=== PATIENT | male | born 1990 | race Caucasian/White ===

== ENCOUNTER 2019-02-01 21:54 | Emergency (ER) | payer SELFPAY ==
[~2019-02-01 21:54] MED LIST: Orphenadrine 100 MG Tab.ER PO SCH
[2019-02-01] MEDS ORDERED: Ibuprofen 800 MG Tab PO ONE (22:20)
[2019-02-01] MEDS ORDERED: Lisinopril 10 MG Tab PO ONE (22:20)
--- NOTE | 2019-02-01 22:28 | EDM.PDOC ---
ED HPI GENERAL MEDICAL PROBLEM - General Chief Complaint: Neck Problem Stated Complaint: NECK/SHOULDER PAIN/WEAKNESS Time Seen by Provider: 02/01/19 22:18 Source of Information: Reports: Patient History Limitations: Reports: No Limitations - History of Present Illness INITIAL COMMENTS - FREE TEXT/NARRATIVE: 28 y/o male presents to ER with cc right sided neck pain and right shoulder pain that started yesterday. He states the pain started in the right side of his neck and now is in his right upper shoulder region. He denies fever, chills , headache. He has not taken anything for pain. He reports the pain is worse with movement. He also has a history or hypertension and is hypertensive here. He does not take medications for his blood pressure. He does not have a PCP. Onset Date: 01/31/19 Onset Time: 16:00 Duration: Getting Worse Location: Reports: Neck, Upper Extremity, Right Quality: Reports: Ache Severity: Mild Improves with: Reports: None Worsens with: Reports: None Context: Reports: Lifting Associated Symptoms: Reports: No Other Symptoms Right Neck Pain Score (Numeric/FACES): 4 - Related Data Allergies Allergy/AdvReac Type Severity Reaction Status Date / Time No Known Allergies Allergy Verified 02/01/19 22:05 Home Meds: Home Meds Cyclobenzaprine [Flexeril] 10 mg PO TID PRN 10 Days #30 tab 02/01/19 [Rx] Ibuprofen 800 mg PO Q8HR PRN 10 Days #30 tablet 02/01/19 [Rx] Past Medical History - Past Health History Medical/Surgical History: Denies Medical/Surgical History - Past Surgical History HEENT Surgical History: Reports: Tonsillectomy Musculoskeletal Surgical History: Reports: Other (See Below) Other Musculoskeletal Surgeries/Procedures:: rotator cuff surgery Social & Family History - Tobacco Use Smoking Status *Q: Never Smoker - Caffeine Use Caffeine Use: Reports: Coffee, Energy Drinks, Soda, Tea - Recreational Drug Use Recreational Drug Use: No ED ROS GENERAL - Review of Systems Review Of Systems: See Below Constitutional: Denies: Fever, Chills HEENT: Reports: No Symptoms Respiratory: Denies: Shortness of Breath Cardiovascular: Denies: Chest Pain Endocrine: Denies: Fatigue GI/Abdominal: Reports: No Symptoms : Reports: No Symptoms Musculoskeletal: Reports: Neck Pain, Shoulder Pain (right shoulder) Skin: Reports: No Symptoms Neurological: Reports: No Symptoms. Denies: Dizziness, Headache Psychiatric: Reports: No Symptoms Hematologic/Lymphatic: Reports: No Symptoms Immunologic: Reports: No Symptoms ED EXAM, UPPER BACK/NECK PAIN - Physical Exam Exam: See Below Exam Limited By: No Limitations General Appearance: Alert, WD/WN, No Apparent Distress Eye Exam: Bilateral Eye: EOMI, PERRL Ears Exam: Normal External Exam, Normal Canal, Hearing Grossly Normal, Normal TMs Nose Exam: Normal Inspection, Normal Mucousa, No Blood Throat/Mouth Exam: Normal Inspection, Normal Lips, Normal Teeth, Normal Gums, Normal Oropharynx, Normal Voice, No Airway Compromise Head Exam: Atraumatic, Normocephalic Neck Exam: Non-Tender, Full Range of Motion, Normal Alignment, Normal Inspection Cardiovascular/Respiratory: Regular Rate, Rhythm, Normal Peripheral Pulses, Normal Breath Sounds, No Respiratory Distress, JVD Back Exam: Normal Inspection, Full Range of Motion Extremities: Normal Inspection, Normal Range of Motion, Non-Tender, No Pedal Edema, Normal Capillary Refill Neurologic: human resources temp II-XII nml As Tested, No Motor/Sensory Deficits, Alert, Normal Mood/Affect, Oriented x 3 Psychiatric: Normal Affect, Normal Mood Skin Exam: Normal Color, Warm/Dry Lymphatic: No Adenopathy Course - Vital Signs Last Recorded V/S: Last Vital Signs Temp 97.5 F 02/01/19 22:03 Pulse 75 02/01/19 22:03 Resp 18 02/01/19 22:03 BP 171/115 H 02/01/19 22:03 Pulse Ox 98 02/01/19 22:03 - Orders/Labs/Meds Orders: Active Orders 24 hr Category Date Time Status Ibuprofen [Motrin] Med 02/01/19 22:20 Once 800 mg PO ONETIME ONE Lisinopril [Prinivil] Med 02/01/19 22:20 Once 10 mg PO ONETIME ONE Orphenadrine [Norflex] Med 02/01/19 21:00 Active 100 mg PO BEDTIME Medication Orders Ibuprofen (Motrin) 800 mg PO ONETIME ONE Stop: 02/01/19 22:21 Orphenadrine Citrate (Norflex) 100 mg PO BEDTIME KARINA Meds: Medications Generic Name Dose Route Start Last Admin Trade Name Freq PRN Reason Stop Dose Admin Ibuprofen 800 mg 02/01/19 22:20 Motrin PO 02/01/19 22:21 ONETIME ONE Orphenadrine Citrate 100 mg 02/01/19 21:00 Norflex PO BEDTIME [facility] - Re-Assessments/Exams Free Text/Narrative Re-Assessment/Exam: 02/01/19 22:25 28 y/o male presented to ER with cc two day history of right sided neck and shoulder pain. I will discharge home with Flexeril for muscle strain. I informed him not to take this medication and drink, drive or operate machinery while taking it. I will refer the patient to Dr. Miriam Skaggs for evaluation and treatment of hypertension. Instructed him to return to the ER for any new or acute worsening symptoms. I will give the patient a few days off work. He verbalized understanding and is comfortable with plan for discharge. He is stable at time of discharge. Departure - Departure Time of Disposition: 22:28 Disposition: Home, Self-Care 01 Condition: Good Clinical Impression: Neck muscle strain Qualifiers: Encounter type: initial encounter Qualified Code(s): S16.1XXA - Strain of muscle, fascia and tendon at neck level, initial encounter Right shoulder strain Qualifiers: Encounter type: initial encounter Qualified Code(s): S46.911A - Strain of unspecified muscle, fascia and tendon at shoulder and upper arm level, right arm , initial encounter - Discharge Information *PRESCRIPTION DRUG MONITORING PROGRAM REVIEWED*: Yes *COPY OF PRESCRIPTION DRUG MONITORING REPORT IN PATIENT ESTEVAN: Not Applicable Prescriptions: Ibuprofen 800 mg PO Q8HR PRN 10 Days #30 tablet PRN Reason: shoulder pain Cyclobenzaprine [Flexeril] 10 mg PO TID PRN 10 Days #30 tab PRN Reason: neck pain Instructions: Muscle Strain, [id number], Cryotherapy, [id number] Referrals: Vish Vera MD [Physician] - Forms: ED Department Discharge, ED Return to Work/School Form - My Orders Last 24 Hours: My Active Orders 02/01/19 21:00 Orphenadrine [Norflex] 100 mg PO BEDTIME 02/01/19 22:20 Ibuprofen [Motrin] 800 mg PO ONETIME ONE Lisinopril [Prinivil] 10 mg PO ONETIME ONE - Assessment/Plan Last 24 Hours: My Active Orders 02/01/19 21:00 Orphenadrine [Norflex] 100 mg PO BEDTIME 02/01/19 22:20 Ibuprofen [Motrin] 800 mg PO ONETIME ONE Lisinopril [Prinivil] 10 mg PO ONETIME ONE
== END 2019-02-01 22:38 | disposition home or self-care (01) ==
LOC: JD.ED 21:54
DX: S16.1XXA Strain of muscle, fascia and tendon at neck level, initial encounter (principal); S46.911A Strain of unspecified muscle, fascia and tendon at shoulder and upper arm level, right arm, initial encounter; X58.XXXA Exposure to other specified factors, initial encounter
CPT/HCPCS: 99283; A9270

== ENCOUNTER 2019-11-29 10:51 | Emergency (ER) | payer BC ==
[2019-11-29] MEDS ORDERED: Sodium Chloride 0.9% 10 ML Syringe FLUSH PRN (11:16)
--- NOTE | 2019-11-29 11:16 | EDM.PDOC ---
ED HPI GENERAL MEDICAL PROBLEM - General Chief Complaint: Respiratory Problem Stated Complaint: SOB/COUGH Time Seen by Provider: 11/29/19 11:01 Source of Information: Reports: Patient, RN Notes Reviewed History Limitations: Reports: No Limitations - History of Present Illness INITIAL COMMENTS - FREE TEXT/NARRATIVE: Patient is a 29-year-old male who presents to the ED for the evaluation of increasing shortness of breath and a cough. Patient states that this cough has been chronic since July. It is normally a dry cough, but he gets some dark brown, really dark-colored mucus up at times. Patient states he has been evaluated multiple times at the walk-in clinic for this cough, he states he has been tried on steroids, nebulizers, antibiotics, and nothing seems to really help his cough. The patient states that he went to work today however, and he had some sudden onset dizziness, sweating, and vomiting that was out of character for him. He does note that he gets hot and cold flashes following the cough fits. He went to the walk-in clinic for evaluation of his symptoms today, but they sent him to the ER, as they thought it may be his heart. The patient does not have a primary care provider. He states that he does not have any prior lung issues like asthma, but he was diagnosed with pleurisy in [place] a few years back. He does not take any other sort of regular medications. He does complain of some nausea in the morning, but this does seem to get better as the day progresses. He is also experienced some increased pressure in his face, when he brings his head down past his heart level or to his knees. - Related Data Allergies Allergy/AdvReac Type Severity Reaction Status Date / Time No Known Allergies Allergy Verified 11/29/19 11:00 Home Meds: Home Meds Doxycycline [Vibramycin] 200 mg PO BID #40 tab 11/29/19 [Rx] Fluticasone Propionate [Flovent HFA 110 MCG] 1 puff INH BID #1 inh 11/29/19 [Rx] Past Medical History Respiratory History: Reports: Other (See Below) (pleurisy) - Past Surgical History HEENT Surgical History: Reports: Tonsillectomy Musculoskeletal Surgical History: Reports: Other (See Below) Other Musculoskeletal Surgeries/Procedures:: rotator cuff surgery Social & Family History - Tobacco Use Smoking Status *Q: Never Smoker - Caffeine Use Caffeine Use: Reports: Coffee, Energy Drinks, Soda, Tea - Alcohol Use Alcohol Use History: Yes Alcohol Use Frequency: Socially - Recreational Drug Use Recreational Drug Use: No ED ROS GENERAL - Review of Systems Review Of Systems: See Below Constitutional: Denies: Fever, Chills HEENT: Denies: Rhinitis, Sinus Problem, Throat Pain Respiratory: Reports: Shortness of Breath Cardiovascular: Reports: Lightheadedness. Denies: Chest Pain, Blood Pressure Problem, Palpitations GI/Abdominal: Reports: Nausea (worse in the AM, goes away as the day progresses) . Denies: Abdominal Pain, Constipation, Diarrhea, Vomiting Neurological: Denies: Headache, Syncope Immunologic: Denies: Environmental Allergy, Seasonal Allergy ED EXAM, GENERAL - Physical Exam Exam: See Below Exam Limited By: No Limitations General Appearance: Alert, WD/WN, No Apparent Distress Eye Exam: Bilateral Eye: EOMI, Normal Inspection, PERRL Ears: Normal External Exam, Normal Canal, Hearing Grossly Normal, Normal TMs Nose: Normal Inspection, Other (bilateral injected turbinates) Throat/Mouth: Normal Inspection, Normal Lips, Normal Teeth, Normal Gums, Normal Oropharynx, Normal Voice, No Airway Compromise Head: Atraumatic, Normocephalic Neck: Normal Inspection, Supple, Non-Tender, Full Range of Motion Respiratory/Chest: No Respiratory Distress, Lungs Clear, No Accessory Muscle Use , Chest Non-Tender, Decreased Breath Sounds (diffuse bilaterally) Cardiovascular: Normal Peripheral Pulses, Regular Rate, Rhythm, No Edema, No Murmur Peripheral Pulses: 3+: Radial (L), Radial (R) GI/Abdominal: Normal Bowel Sounds, Soft, Non-Tender, No Distention, No Mass Extremities: Normal Inspection, Normal Capillary Refill Neurological: Alert, Oriented, Normal Cognition, No Motor/Sensory Deficits Psychiatric: Normal Affect, Normal Mood Skin Exam: Warm, Dry, Intact, Normal Color, No Rash EKG INTERPRETATION EKG Date: 11/29/19 Time: 11:37 Rhythm: NSR Rate (Beats/Min): 85 [place]: Normal P-Wave: Present QRS: Normal ST-T: Normal QT: Normal Comparison: NA - No Prior EKG EKG Interpretation Comments: No acute ischemic changes noted reviewed by Dr. Larios and myself. Course - Vital Signs Last Recorded V/S: Last Vital Signs Temp 98.4 F 11/29/19 10:58 Pulse 79 11/29/19 10:58 Resp 16 11/29/19 10:58 BP 156/104 H 11/29/19 10:58 Pulse Ox 96 11/29/19 10:58 - Orders/Labs/Meds Orders: Active Orders 24 hr Category Date Time Status EKG Documentation Completion [RC] STAT Care 11/29/19 11:16 Ordered Peripheral IV Care [RC] . DIRECTED Care 11/29/19 11:17 Ordered CBC WITH MANUAL DIFF [HEME] Stat Lab 11/29/19 11:16 Ordered Sodium Chloride 0.9% [Saline Flush] Med 11/29/19 11:16 Ordered 10 ml FLUSH ASDIRECTED PRN Peripheral IV Insertion Adult [OM.PC] Stat Oth 11/29/19 11:16 Ordered Medication Orders Sodium Chloride (Saline Flush) 10 ml FLUSH ASDIRECTED PRN PRN Reason: Keep Vein Open Labs: Laboratory Tests 11/29/19 11/29/19 11/29/19 Range/Units 12:20 12:20 12:20 WBC 7.78 (4.23-9.07) K/mm3 RBC 5.16 (4.63-6.08) M/mm3 Hgb 15.7 (13.7-17.5) gm/dl Hct 44.0 (40.1-51.0) % MCV 85.3 (79.0-92.2) fl MCH 30.4 (25.7-32.2) pg MCHC 35.7 H (32.2-35.5) g/dl RDW Std Deviation 39.5 (35.1-43.9) fL Plt Count 241 (163-337) K/mm3 MPV 10.8 (9.4-12.3) fl Neutrophils % (Manual) 71 H (40-60) % Band Neutrophils % 0 (0-10) % Lymphocytes % (Manual) 22 (20-40) % Atypical Lymphs % 0 % Monocytes % (Manual) 7 (2-10) % Eosinophils % (Manual) 0 L (0.8-7.0) % Basophils % (Manual) 0 L (0.2-1.2) Anisocytosis 1+ slight RBC Morph Comment Normal PT 10.9 (9.7-12.0) SECONDS INR 1.00 APTT 26 (22-31) SECONDS Sodium 141 (136-145) mEq/L Potassium 4.3 (3.5-5.1) mEq/L Chloride 104 (98-107) mEq/L Carbon Dioxide 26 (21-32) mEq/L Anion Gap 15.3 H (5-15) BUN 14 (7-18) mg/dL Creatinine 1.0 (0.7-1.3) mg/dL Est Cr Clr Drug Dosing 131.44 mL/min Estimated GFR (MDRD) > 60 (>60) mL/min BUN/Creatinine Ratio 14.0 (14-18) Glucose 93 (74-106) mg/dL Calcium 9.2 (8.5-10.1) mg/dL Magnesium 1.9 (1.8-2.4) mg/dl Total Bilirubin 0.7 (0.2-1.0) mg/dL AST 35 (15-37) U/L ALT 107 H (16-63) U/L Alkaline Phosphatase 56 (46-116) U/L Troponin I < 0.017 (0.00-0.056) ng/mL Total Protein 7.5 (6.4-8.2) g/dl Albumin 4.3 (3.4-5.0) g/dl Globulin 3.2 gm/dL Albumin/Globulin Ratio 1.3 (1-2) Meds: Medications Generic Name Dose Route Start Last Admin Trade Name Freq PRN Reason Stop Dose Admin Sodium Chloride 10 ml 11/29/19 11:16 Saline Flush FLUSH ASDIRECTED PRN Keep Vein Open - Re-Assessments/Exams Free Text/Narrative Re-Assessment/Exam: 11/29/19 11:34 Patient presents to the ED for the evaluation of his chronic cough and URI symptoms. I did order some labs EKG a chest x-ray to rule things out, and were questioning the thought of an acid reflux type component to the cough, as he states his nausea is worse in the morning. If everything comes back fairly normal, will likely have him try some omeprazole [id number] to see if this does not help calm his cough. Turbinates are pretty injected as well, is likely that he has some sort of allergic type response with a postnasal drip component as well, he states that he is tried multiple things for postnasal drip and nothing seems to work, I am questioning whether he stuck with it or did it as directed. 11/29/19 13:06 Lab work-up demonstrates no abnormalities. Chest x-ray is still pending, however there does not appear to be any obvious sign of an infiltrate, there is a small area on the right lower lung that appears to be a small pleural effusion. Again I am questioning whether or not his chronic cough could be due to GERD or reflux in nature, and now with a chest x-ray demonstrating a mild effusion this could be causing enough irritation as well. Departure - Departure Time of Disposition: 13:28 Disposition: Home, Self-Care 01 Condition: Fair Clinical Impression: Cough in adult Sinusitis Qualifiers: Sinusitis location: unspecified location Chronicity: acute Recurrence: non- recurrent Qualified Code(s): J01.90 - Acute sinusitis, unspecified - Discharge Information *PRESCRIPTION DRUG MONITORING PROGRAM REVIEWED*: No *COPY OF PRESCRIPTION DRUG MONITORING REPORT IN PATIENT ESTEVAN: No Instructions: How to Perform a Sinus Rinse, [id number], Cough, Adult, Easy-to -Read Referrals: PCP,None [Primary Care Provider] - Forms: ED Department Discharge Additional Instructions: You were evaluated in the ER today regarding your chronic cough and other sick- like symptoms. Laboratory evaluation done today demonstrates no metabolic abnormalities or any sort of bacterial infection. Chest x-ray shows a very very very small pleural effusion in the right lung base, which may be causing some irritation to her lungs but should not be attributing this much to your cough. It is still likely that your cough is due to postnasal drip in nature, as your sinuses are quite congested on exam. You have been started on doxycycline 200 mg twice daily for the next 10 days, and will be started on Flovent, 2 puffs twice daily, until you have no cough for 3 days, and then you can taper off of this. Recommend you perform sinus rinses, twice daily, for a few days as well to help see if this does not clear up some of your symptoms. It is also highly likely due to your reported nausea in the morning, that your symptoms may also likely be due to acid reflux in nature, recommend you start taking omeprazole [id number], do this for the next 2 or 3 weeks to see if this does not help improve your symptoms. Try to stay away from spicy foods, alcohol, chocolate over the next few days to see if this does not help relieve some of your symptoms as well. Recommend you set up care with a primary care physician of your choice, our clinic number [phone], any family practice provider would be able to help you with this. Please return to the ER at any time however if your symptoms change or worsen. Sepsis Event Note - Evaluation Sepsis Screening Result: No Definite Risk - Focused Exam Vital Signs: Vital Signs Temp Pulse Resp BP Pulse Ox 11/29/19 10:58 98.4 F 79 16 156/104 H 96 Date Exam was Performed: 11/29/19 Time Exam was Performed: 13:26 - My Orders Last 24 Hours: My Active Orders 11/29/19 11:16 EKG Documentation Completion [RC] STAT CBC WITH MANUAL DIFF [HEME] Stat Sodium Chloride 0.9% [Saline Flush] 10 ml FLUSH ASDIRECTED PRN Peripheral IV Insertion Adult [OM.PC] Stat 11/29/19 11:17 Peripheral IV Care [RC] . DIRECTED - Assessment/Plan Last 24 Hours: My Active Orders 11/29/19 11:16 EKG Documentation Completion [RC] STAT CBC WITH MANUAL DIFF [HEME] Stat Sodium Chloride 0.9% [Saline Flush] 10 ml FLUSH ASDIRECTED PRN Peripheral IV Insertion Adult [OM.PC] Stat 11/29/19 11:17 Peripheral IV Care [RC] . DIRECTED
--- NOTE | 2019-11-29 13:25 | CR ---
Chest: Two views of the chest were obtained. Comparison: No previous chest imaging is available. Heart size and mediastinum are within normal limits. Lungs are clear with no acute parenchymal change. Bony structures are within normal limits for the patient's age. Impression: 1. Nothing acute is appreciated on two-view chest x-ray. Diagnostic code #1 Study was dictated in [place] Standard Time
== END 2019-11-29 13:48 | disposition home or self-care (01) ==
LOC: JD.ED 10:51
DX: J01.90 Acute sinusitis, unspecified (principal)
CPT/HCPCS: 36415; 71046; 71046-26; 80053; 83735; 84484; 85007; 85027; 85610; 85730; 87804; 93005; 93010; 99283; 99285-25